=== PATIENT | female | born 1995 | race Caucasian/White ===

== ENCOUNTER 2017-12-03 00:54 | Emergency (ER) | payer OTHER ==
[2017-12-03] MEDS ORDERED: IBUPROFEN 600 MG TAB PO ONE ×2 (01:07→01:08)
--- NOTE | 2017-12-03 01:18 | EDPHY ---
H & P Time Seen by Provider: 12/03/17 01:06 HPI/ROS: CHIEF COMPLAINT: Right knee injury HISTORY OF PRESENT ILLNESS: 22-year-old female presents to the emergency department with pain and swelling to her right knee. The patient has a no ACL tear to her right knee. She is undergoing physical therapy currently. She is followed by an orthopedic in [place] where she is from. She states tonight she was dancing and then felt her knee kind of pop and give out on her. She is concerned that it was dislocated. She complains of isolated pain to the right knee. She has pain especially with range of motion trying to bear weight. She denies falling and hitting her head. Denies any other trauma or injury. ROS: Denies numbness or tingling in her toes, pain in the right ankle or hip. Past Medical/Surgical History: Multiple knee surgeries Social History: Single from [place] Smoking Status: Never smoked Physical Exam: On examination the patient has some mild swelling noted diffusely to the anterior aspect of her right knee. She is holding her knee in slight flexion. She is unable to flex beyond about 45 degrees before she is limited by pain. She has no pain with palpation the medial or lateral joint line. She does have obvious laxity of the ACL ligament with drawer test. Her calf is nontender. Her Achilles tendon is intact. Her right ankle is nontender. No pain with external or internal rotation of the right hip. She is able to lift her right leg up on her own without difficulty. She has well-healed surgical scars noted to the anterior aspect of the right knee. There is no redness or warmth or signs of infection. Constitutional: Initial Vital Signs Temperature (C) 36.8 C 12/03/17 00:56 Heart Rate 117 H 12/03/17 00:56 Respiratory Rate 22 H 12/03/17 00:56 Blood Pressure 139/93 H 12/03/17 00:56 O2 Sat (%) 96 12/03/17 00:56 O2 Delivery Mode Room Air Allergies/Adverse Reactions: No Known Allergies Allergy (Unverified 12/03/17 00:55) Home Medications: Medication Instructions Recorded Birthcontrol 12/03/17 Diclofenac Sodium 12/03/17 [place] Carbonate 12/03/17 MDM/Departure - MDM Imaging Results: Imaging Impressions Knee X-Ray 04/22/18 01:19 Impression: Negative for fracture. If clinical symptomatology suggests internal derangement, MRI could be considered for further evaluation. Imaging: I viewed and interpreted images myself Procedures: Patient was placed in a straight leg knee immobilizer and examined post application in good placement with normal BENCH JEWELER. Medications Given: Discontinued Medications Ibuprofen (Motrin) 600 mg PO EDNOW ONE Stop: 12/03/17 01:09 Last Admin: 12/03/17 01:09 Dose: 600 mg Oxycodone/Acetaminophen (Percocet 5/325mg Prepack#4) 1 btl TAKEHOME EDNOW ONE Stop: 12/03/17 02:21 Last Admin: 12/03/17 02:39 Dose: 1 btl ED Course/Re-evaluation: The patient is concerned that she has "dislocated" her knee. There is no signs of patellar subluxation or dislocation. She does have obvious laxity of the ACL ligament in the right knee. X-ray has been ordered of the right knee. X-rays reveal no fractures. Patient was placed in a straight leg knee immobilizer and given orthopedic referral. She would like to follow up with her orthopedic surgeon Bernabe. She is traveling home on Monday. She was given copies of her x-rays. - Depart Disposition: Home, Routine, Self-Care Clinical Impression: Right knee sprain Qualifiers: Encounter type: initial encounter Involved ligament of knee: anterior cruciate ligament Qualified Code(s): S83.511A - Sprain of anterior cruciate ligament of right knee, initial encounter ACL injury tear Qualifiers: Encounter type: initial encounter Laterality: right Qualified Code(s): S83.511A - Sprain of anterior cruciate ligament of right knee, initial encounter Condition: Good Instructions: Oxycodone/Acetaminophen (By mouth), Knee Sprain (ED), ACL Injury (ED) Additional Instructions: Knee immobilizer. Crutches. Follow up with orthopedic surgeon. Ibuprofen 400 mg every 8 hr as needed for pain. Referrals: Matteo Kendrick MD [Medical Doctor] - As per Instructions (On-call orthopedic surgeon)
[2017-12-03] MEDS ORDERED: OXYCODONE/APAP 5/325MG PREPACK#4 BTL TAKEHOME ONE (02:20)
[2017-12-03 02:44] VITALS: BP 107/63
== END 2017-12-03 02:43 | disposition home or self-care (01) ==
DX: S83.511A Sprain of anterior cruciate ligament of right knee, initial encounter (principal); X50.9XXA Other and unspecified overexertion or strenuous movements or postures, initial encounter; Y99.8 Other external cause status; Y93.41 Activity, dancing
CPT/HCPCS: L1830